=== PATIENT | male | born 1975 | race Caucasian/White ===

== ENCOUNTER 2017-03-22 17:41 | Emergency (ER) | payer OTHER ==
[2017-03-22] MEDS ORDERED: ACETAMINOPHEN 325 MG TABLET PO ONE (18:06)
[2017-03-22] MEDS ORDERED: NORMAL SALINE 1000 ML 1,000 ML IV ONE (18:07)
--- NOTE | 2017-03-22 18:10 | ER Document Report ---
ED Medical Screen (RME) - General Chief Complaint: Shortness Of Breath Stated Complaint: POSSIBLE RASH Time Seen by Provider: 03/22/17 18:06 Mode of Arrival: Ambulatory Information source: Patient, Relative - pt currently on prednisone for systemic poison janice with cough starting 3-4 days ago -- ran a half-marathon today and developed fever to 102.5 TRAVEL OUTSIDE OF THE [place] IN LAST 30 DAYS: No - Related Data Allergies/Adverse Reactions: Penicillins Allergy (Verified 03/22/17 17:53) Sulfa (Sulfonamide Antibiotics) Allergy (Verified 03/22/17 17:53) Past Medical History Renal/ Medical History: Denies: Hx Peritoneal Dialysis Physical Exam - Vital signs Vitals: Temp Pulse Resp BP Pulse Ox 102.7 F H 108 H 18 141/80 H 99 03/22/17 17:52 03/22/17 17:52 03/22/17 17:52 03/22/17 17:52 03/22/17 17:52 Course - Vital Signs Vital signs: Temp Pulse Resp BP Pulse Ox 102.7 F H 108 H 18 141/80 H 99 03/22/17 17:52 03/22/17 17:52 03/22/17 17:52 03/22/17 17:52 03/22/17 17:52
[2017-03-22 19:06] LABS: ABSOLUTE LYMPHOCYTES (AUTO) 1.4 10^3/uL (0.5-4.7); ABSOLUTE MONOCYTES (AUTO) 1.1 10^3/uL (0.1-1.4); ABSOLUTE NEUT (AUTO) 10.1 10^3/uL (1.7-8.2); BASOPHILS % (AUTO) 0.3 % (0-2); EOSINOPHILS % (AUTO) 0.3 % (0-6); HEMATOCRIT 49.5 % (37.9-51.0); HEMOGLOBIN 16.4 g/dL (13.5-17.0); HGB HCT DIFFERENCE -0.3; LYMPHOCYTES % (AUTO) 11.4 % (13-45); MEAN CORPUSCULAR HEMOGLOBIN 27.6 pg (27.0-33.4); MEAN CORPUSCULAR HGB CONC 33.1 g/dL (32.0-36.0); MEAN CORPUSCULAR VOLUME 83 fl (80-97); MONOCYTES % (AUTO) 8.5 % (3-13); RED BLOOD COUNT 5.94 10^6/uL (4.35-5.55); SEGMENTED NEUTROPHILS % (AUTO) 79.5 % (42-78); WHITE BLOOD COUNT 12.7 10^3/uL (4.0-10.5)
[2017-03-22 19:23] LABS: ALANINE AMINOTRANSFERASE 44 U/L (21-72); ALBUMIN 4.9 g/dL (3.5-5.0); ALKALINE PHOSPHATASE 78 U/L (38-126); ANION GAP 13 (5-19); ASPARTATE AMINO TRANSFERASE 43 U/L (17-59); BILIRUBIN,DIRECT 0.5 mg/dL (0.0-0.4); BILIRUBIN,TOTAL 1.5 mg/dL (0.2-1.3); BLOOD UREA NITROGEN 26 mg/dL (7-20); CALCIUM 10.8 mg/dL (8.4-10.2); CARBON DIOXIDE 31 mmol/L (22-30); CHLORIDE 93 mmol/L (98-107); CREATININE RESULT 1.64 mg/dL (0.52-1.25); GLUCOSE 104 mg/dL (75-110); POTASSIUM 4.4 mmol/L (3.6-5.0); SODIUM 136.7 mmol/L (137-145); TOTAL PROTEIN 8.7 g/dL (6.3-8.2)
[2017-03-22] MEDS ORDERED: NORMAL SALINE 1000 ML 1,000 ML IV PRN (19:32)
[2017-03-22] MEDS ORDERED: AZITHROMYCIN 250 MG TABLET PO ONE (19:32)
--- NOTE | 2017-03-22 19:34 | ER Document Report ---
ED Fever - General Chief Complaint: Shortness Of Breath Stated Complaint: SHORTNESS OF BREATH Time Seen by Provider: 03/22/17 18:06 Mode of Arrival: Ambulatory Information source: Patient TRAVEL OUTSIDE OF THE [place] IN LAST 30 DAYS: No - HPI Patient complains to provider of: Fever, productive cough Onset: Other - 5 days Onset/Duration: Persistent, Worse Quality of pain: No pain Associated symptoms: Productive cough, Fever Similar symptoms previously: No Recently seen / treated by doctor: No Notes: Patient is a 41-year-old male who presents to the emergency room complaining of fever of 102.7, with productive cough that has been going on for 5 days, he attempted to run a half marathon today but was only able to complete half of it , he denies any abdominal pain, no nausea, vomiting or diarrhea, no urinary symptoms - Related Data Allergies/Adverse Reactions: Penicillins Allergy (Verified 03/22/17 18:50) Sulfa (Sulfonamide Antibiotics) Allergy (Verified 03/22/17 18:50) Past Medical History - General Information source: Patient, Relative - pt currently on prednisone for systemic poison janice with cough starting 3-4 days ago -- ran a half-marathon today and developed fever to 102.5 - Social History Smoking Status: Never Smoker Chew tobacco use (# tins/day): No Frequency of alcohol use: None Drug Abuse: None Family History: Reviewed & Not Pertinent Renal/ Medical History: Denies: Hx Peritoneal Dialysis Past Surgical History: Reports: Hx Cholecystectomy Review of Systems - Review of Systems Constitutional: Fever EENT: No symptoms reported Cardiovascular: No symptoms reported Respiratory: Cough, Sputum Gastrointestinal: No symptoms reported Genitourinary: No symptoms reported Male Genitourinary: No symptoms reported Musculoskeletal: No symptoms reported Skin: No symptoms reported Hematologic/Lymphatic: No symptoms reported Neurological/Psychological: No symptoms reported -: Yes All other systems reviewed and negative Physical Exam - Vital signs Vitals: Temp Pulse Resp BP Pulse Ox 102.7 F H 108 H 18 141/80 H 99 03/22/17 17:52 03/22/17 17:52 03/22/17 17:52 03/22/17 17:52 03/22/17 17:52 Interpretation: Hypertensive, Tachycardic, Febrile - General General appearance: Appears well, Alert - HEENT Head: Normocephalic, Atraumatic Eyes: Normal Conjunctiva: Normal Extraocular movements intact: Yes Eyelashes: Normal Pupils: PERRL Pharynx: Normal Neck: Normal - Respiratory Respiratory status: No respiratory distress Chest status: Nontender Breath sounds: Productive cough, Other - Coarse breath sounds Chest palpation: Normal - Cardiovascular Rhythm: Regular Heart sounds: Normal auscultation Murmur: No - Abdominal Inspection: Normal Distension: No distension Bowel sounds: Normal Tenderness: Nontender Organomegaly: No organomegaly - Back Back: Normal, Nontender - Extremities General upper extremity: Normal inspection, Nontender, Normal color, Normal ROM , Normal temperature General lower extremity: Normal inspection, Nontender, Normal color, Normal ROM , Normal temperature, Normal weight bearing. No: Geneva's sign - Neurological Neuro grossly intact: Yes Cognition: Normal Orientation: AAOx4 Mark Coma Scale Eye Opening: Spontaneous Mark Coma Scale Verbal: Oriented [place] Coma Scale Motor: Obeys Commands Mark Coma Scale Total: 15 Speech: Normal Motor strength normal: LUE, RUE, LLE, RLE Sensory: Normal - Psychological Associated symptoms: Normal affect, Normal mood - Skin Skin Temperature: Warm Skin Moisture: Dry Skin Color: Normal Course - Re-evaluation Re-evalutation: 03/22/17 20:47 Patient resting comfortably, reports feeling much better after IV fluids, patient with bronchitis, he has a productive cough and a significant fever, therefore will be started on a azithromycin, advised to drink plenty of fluids, he was advised of his abnormal kidney function likely related to dehydration, is advised to rest, follow-up with his primary care provider in 2-3 days or return if symptoms worsen, patient acknowledges understanding and agreement with this plan - Vital Signs Vital signs: Temp Pulse Resp BP Pulse Ox 99.0 F 108 H 25 H 108/70 97 03/22/17 20:01 03/22/17 17:52 03/22/17 20:01 03/22/17 20:01 03/22/17 20:01 - Laboratory Result Diagrams: 03/22/17 18:35 03/22/17 18:35 Laboratory results interpreted by me: 03/22/17 03/22/17 18:35 18:35 WBC 12.7 H RBC 5.94 H Seg Neutrophils % 79.5 H Lymphocytes % 11.4 L Absolute Neutrophils 10.1 H Sodium 136.7 L Chloride 93 L Carbon Dioxide 31 H BUN 26 H Creatinine 1.64 H Est GFR ( Amer) 56 L Est GFR (Non-Af Amer) 46 L Calcium 10.8 H Total Bilirubin 1.5 H Direct Bilirubin 0.5 H Total Protein 8.7 H Discharge - Discharge Clinical Impression: Bronchitis, Dehydration Condition: Stable Disposition: HOME, SELF-CARE Instructions: Bronchitis ([facility]), Dehydration ([facility]) Additional Instructions: Follow up with your primary care provider in one to 2 days. Return to the emergency room immediately if symptoms worsen or any additional concerns. Drink plenty of fluids and get plenty of rest. Prescriptions: Azithromycin [Zithromax 250 mg Tablet] 250 mg PO ASDIR PRN #4 tablet PRN Reason: Referrals: VIDYA CUH MD [Primary Care Provider] - Follow up as needed
[2017-03-22 21:12] VITALS: BP 108/72
== END 2017-03-22 21:11 | disposition home or self-care (01) ==
LOC: ER 17:41
DX: J40 Bronchitis, not specified as acute or chronic (principal); R05 Cough; R50.9 Fever, unspecified; E86.0 Dehydration; R94.4 Abnormal results of kidney function studies; L23.7 Allergic contact dermatitis due to plants, except food; Z88.0 Allergy status to penicillin; Z88.2 Allergy status to sulfonamides
CPT/HCPCS: 99285; 36415; 85025; 80053; 71020; J7030

== ENCOUNTER → 2020-10-02 | Outpatient (CLI) | payer OTHER ==
[2020-10-02 08:13] LABS: ABSOLUTE EOSINOPHILS # (AUTO) 0.2 10^3/uL (0.0-0.6); ABSOLUTE LYMPHOCYTES (AUTO) 1.4 10^3/uL (0.5-4.7); ABSOLUTE MONOCYTES (AUTO) 0.3 10^3/uL (0.1-1.4); ABSOLUTE NEUT (AUTO) 1.7 10^3/uL (1.7-8.2); BASOPHILS % (AUTO) 0.8 % (0-2); EOSINOPHILS % (AUTO) 4.3 % (0-6); HEMATOCRIT 38.5 % (37.9-51.0); HEMOGLOBIN 12.6 g/dL (13.5-17.0); LYMPHOCYTES % (AUTO) 38.2 % (13-45); MEAN CORPUSCULAR HEMOGLOBIN 24.2 pg (27.0-33.4); MEAN CORPUSCULAR HGB CONC 32.8 g/dL (32.0-36.0); MEAN CORPUSCULAR VOLUME 74 fl (80-97); PLATELET COUNT 305 10^3/uL (150-450); RED BLOOD COUNT 5.23 10^6/uL (4.35-5.55); RED CELL DISTRIBUTION WIDTH 16.8 % (11.5-14.0); SEGMENTED NEUTROPHILS % (AUTO) 48.7 % (42-78); TOTAL CELLS COUNTED % (AUTO) 100 %; WHITE BLOOD COUNT 3.5 10^3/uL (4.0-10.5)
[2020-10-02 08:39] LABS: ALBUMIN 4.6 g/dL (3.5-5.0); ALKALINE PHOSPHATASE 69 U/L (38-126); ANION GAP 10 (5-19); ASPARTATE AMINO TRANSFERASE 37 U/L (17-59); BILIRUBIN,DIRECT 0.2 mg/dL (0.0-0.4); BILIRUBIN,TOTAL 0.6 mg/dL (0.2-1.3); BLOOD UREA NITROGEN 17 mg/dL (7-20); CALCIUM 9.8 mg/dL (8.4-10.2); CARBON DIOXIDE 26 mmol/L (22-30); CHLORIDE 106 mmol/L (98-107); CHOLESTEROL 158.34 mg/dL (0-200); GLUCOSE 93 mg/dL (75-110); POTASSIUM 4.1 mmol/L (3.6-5.0); TOTAL PROTEIN 7.9 g/dL (6.3-8.2); TRIGLYCERIDES 64 mg/dL (<150)
[2020-10-02 08:49] LABS: DIRECT LDL 89 mg/dL (<100)
== END ==
LOC: OD 07:26
PROVIDERS: ATTEND Internal Medicine
DX: E03.9 Hypothyroidism, unspecified (principal); R53.83 Other fatigue; E66.9 Obesity, unspecified
CPT/HCPCS: 36415; 80053; 80061; 84153; 84443; 85025

== ENCOUNTER → 2020-10-23 | Outpatient (CLI) | payer OTHER | LOC: OD 08:25 | PROVIDERS: ATTEND Internal Medicine | DX: E03.9 Hypothyroidism, unspecified (principal) | CPT/HCPCS: 36415; 84443 ==

== ENCOUNTER → 2020-11-17 | Outpatient (CLI) | payer OTHER ==
[~2020-11-17] MED LIST: COVID-19 VACCINE (PFIZER)/PF 30 MCG/0.3 ML VIAL IM ONE; EPINEPHRINE INJ/PF 1 MG/1 ML AMPULE IM PRN
== END ==
LOC: EMPHEALTH 07:56
PROVIDERS: ATTEND Internal Medicine
DX: Z23 Encounter for immunization (principal)
CPT/HCPCS: 91300